=== PATIENT | male | born 1995 | race Caucasian/White ===

== ENCOUNTER 2016-06-06 06:45 | Emergency (ER) | payer SELFPAY ==
[~2016-06-06] VITALS: Ht 172.7 cm; Wt 71.8 kg
[2016-06-06 06:47] VITALS: BP 113/72
== END 2016-06-06 08:16 | disposition left against medical advice (07) ==
LOC: EMS 06:46
DX: J02.9 Acute pharyngitis, unspecified (principal); R07.0 Pain in throat; Z53.21 Procedure and treatment not carried out due to patient leaving prior to being seen by health care provider